=== PATIENT | female | born 1965 | race Caucasian/White ===

== ENCOUNTER 2017-05-18 20:03 | Emergency (ER) | payer OTHER ==
[2017-05-18 20:29] VITALS: BP 182/117
[2017-05-18] MEDS ORDERED: methylPREDNISolone 125 MG* 2 ML VIAL IM ONE (21:11)
[2017-05-18] MEDS ORDERED: Cyclobenzaprine TAB* 10 MG PO ONE (21:11)
--- NOTE | 2017-05-18 21:12 | UC ---
Shoulder Pain HPI - HPI Summary HPI Summary: Pt presents with progressive right shoulder pain x 5 weeks. Pt states has radiation to right arm. feels "weak" no trauma, spasm pain Pt with h/o similar neck and back pain with radiculopathy. no victor, vision change. Pt has applied heat. 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 Hx Last Menstrual Period: 05/04/17 Onset/Duration: Gradual Onset, Lasting Days Severity Initially: Moderate Severity Currently: Severe Pain Intensity: 10 Pain Scale Used: 0-10 Numeric Character: Sharp, Spasmodic - Allergies/Home Medications Allergies/Adverse Reactions: Allergies Allergy/AdvReac Type Severity Reaction Status Date / Time tetracycline Allergy Hives Verified 05/18/17 20:23 clarithromycin [From Biaxin] AdvReac See Comment Verified 05/18/17 20:23 Home Medications: Home Medications Valsartan TAB* [Diovan TAB*] 160 mg PO DAILY 05/18/17 [History Confirmed ] amLODIPine TAB* [Norvasc 5 mg TAB*] 10 mg PO DAILY 05/18/17 [History Confirmed 05/18/17] PMH/Surg Hx/FS Hx/Imm Hx Previously Healthy: Yes - Surgical History Surgical History: Yes Surgery Procedure, Year, and Place: c section 1993, left hand tendon 2005-, hernia repair 2016 - Family History Known Family History: Positive: Diabetes - Social History Lives: With Family Alcohol Use: None Substance Use Type: None Smoking Status (MU): Heavy Every Day Tobacco Smoker Type: Cigarettes Amount Used/How Often: 1/2 ppd Review of Systems Constitutional: Negative Musculoskeletal: Other: - right shoulder Neurological: Paresthesia All Other Systems Reviewed And Are Negative: Yes Physical Exam Triage Information Reviewed: Yes Appearance: Well-Nourished, Pain Distress Vital Signs: Initial Vital Signs Temp 96.9 F 05/18/17 20:22 Pulse 94 05/18/17 20:22 Resp 16 05/18/17 20:22 BP 182/117 05/18/17 20:22 Pulse Ox 100 05/18/17 20:22 Vital Signs Reviewed: Yes Eye Exam: Normal Eyes: Positive: Conjunctiva Clear ENT Exam: Normal ENT: Positive: Normal ENT inspection, Hearing grossly normal, TMs normal Dental Exam: Normal Neck exam: Normal Neck: Positive: Supple, Nontender, No Lymphadenopathy Respiratory Exam: Normal Respiratory: Positive: Chest non-tender, Lungs clear, Normal breath sounds, No respiratory distress, No accessory muscle use Cardiovascular Exam: Normal Cardiovascular: Positive: RRR, No Murmur Abdominal Exam: Normal Abdomen Description: Positive: Nontender, No Organomegaly, Soft Bowel Sounds: Positive: Present Musculoskeletal: Positive: Other: - no pain spinous process c/t/l/s + right parasponal pain along medial scapula and trapezius + flex/ext elbow + pronate/ supinate + flex/ext wrist + abduction shoulder with pain >30 + extension shoulder with pain >30 Neurological: Positive: Other: - + thumb up, a ok, finger spread, finger cross + gross sensation Skin: Positive: Other - no erythema, no shingles Re-Evaluation - Re-Evaluation First Eval Change: Improved - Pt states feels improved in sling Rx medtrol dose pack heat flexeril pcp f/u of note, istop reviewed no concerns Shoulder Course/Dx - Course Course Of Treatment: pt wtih discomfort right paraspinal, trapezzius with radiation rue. pt RHD. + discomfort with RPm. Will start pred, flexeril, heat. apap/motrin. sling for comfort - Differential Dx/Diagnosis Provider Diagnoses: shoulder pain. radiculopathy Discharge - Sign-Out/Discharge Documenting (check all that apply): Discharge - Discharge Plan Condition: Stable Disposition: HOME Prescriptions: Cyclobenzaprine TAB* [Flexeril 10 MG TAB*] 10 mg PO TID PRN #15 tab PRN Reason: Spasms methylPREDNISolone [Medrol Dosepak 4 MG*] 4 mg PO .SEE ANT INSTRUCTION #1 ant Patient Education Materials: Cervical Radiculopathy (ED), Muscle Spasm (ED) Referrals: Nina Ortiz MD [Primary Care Provider] - Additional Instructions: - Okay to alternate ibuprofen (Advil, Motrin) 600mg and Tylenol every 3hours as needed for pain. Take with food. Do NOT take for more than 4-5 days. -Take flexeril - muscle relaxer as prescribed. Do NOT drive, operate machinery or drink alcohol while taking Flexeril -Apply moist heat to your back for 20 minutes at a time, 4-5 times a day. Once your muscles are warm, slow gentle sretching exercises are important - wear sling for comfort and support - take prednisone as prescribed until gone -Contact your doctor today to arrange a follow-up appointment -If you pain is uncontrolled - go to an emergency department for further treatment - Billing Disposition and Condition Condition: STABLE Disposition: HOME
== END 2017-05-18 21:40 | disposition home or self-care (01) ==
LOC: UCCORT 20:03
DX: M25.511 Pain in right shoulder (principal); M54.10 Radiculopathy, site unspecified; F17.210 Nicotine dependence, cigarettes, uncomplicated; Z88.3 Allergy status to other anti-infective agents
CPT/HCPCS: 96372; 99203; A9270-GY; G0463; J2930

== ENCOUNTER 2020-07-15 11:15 | Observation (INO) ==
[~2020-07-15 11:15] MED LIST: Buffered Lidocaine 1% SYRIN 1 ml INTRADERM ONE; Lactated Ringers 1000 ml BAG 1,000 ML IV SCH; Midazolam 2 mg/2 ml VIAL 1 mg/ml 2 ml VIAL (2 mg) ONE; Propofol 10 MG/ML 20 ML BTL ONE; ceFAZolin 2 GM PREMIX 2 GM/50 ML BAG ONE; fentaNYL 100 mcg/2 ml 50 MCG/ML VIAL ONE
[2020-07-15] MEDS ORDERED: Dexamethasone IV 4 MG/ML VIAL 1 ml VIAL ONE ×2 (12:31→13:45)
[2020-07-15] MEDS ORDERED: Midazolam 2 mg/2 ml VIAL 1 mg/ml 2 ml VIAL (2 mg) ONE (12:31)
[2020-07-15] MEDS ORDERED: Bupivacaine 0.5% SDV PF 30ML VIAL ONE (12:32)
[2020-07-15] MEDS ORDERED: ROPIVACAINE 5 MG/ML 30 ML BTL (0.5%) ONE (12:40)
[2020-07-15] MEDS ORDERED: Propofol 10 MG/ML 20 ML BTL ONE ×2 (12:48→15:01)
[2020-07-15] MEDS ORDERED: Rocuronium 50 mg VIAL 10 mg/ml 5 ml VIAL (50 mg) ONE ×2 (12:49→14:48)
[2020-07-15] MEDS ORDERED: Lidocaine 2% PF 5 ML VIAL ONE (12:49)
[2020-07-15] MEDS ORDERED: Lidocaine 1% MPF 5 ML VIAL ONE (12:52)
[2020-07-15] MEDS ORDERED: HYDROmorphone 1 MG/1 ML SYRINGE ONE ×2 (13:27→16:12)
[2020-07-15] MEDS ORDERED: DiMENhydriNATE IV 50 mg/ml 1 ml VIAL IV PUSH PRN ×2 (13:41→15:13)
[2020-07-15] MEDS ORDERED: diPHENhydraMINE IV 50 MG/ML 1 ml VIAL (BENADRYL) IV PRN ×3 (13:41→15:13)
[2020-07-15] MEDS ORDERED: Naloxone 0.4 mg VIAL 0.4 mg/ml 1 ml VIAL IV PRN ×2 (13:41→15:13)
[2020-07-15] MEDS ORDERED: HYDROmorphone 1 MG/1 ML SYRINGE IV PRN (13:41)
[2020-07-15] MEDS ORDERED: Ondansetron 4 mg VIAL 2 MG/ML 2 ml VIAL ONE (13:45)
[2020-07-15] MEDS ORDERED: Dexmedetomidine 200 mcg/2 ml 2 ml VIAL (200 mcg) ONE (14:17)
[2020-07-15] MEDS ORDERED: Morphine 2 MG/ML SYRINGE IV PRN (14:21)
[2020-07-15] MEDS ORDERED: Ondansetron 4 mg VIAL 2 MG/ML 2 ml VIAL IV PRN (14:21)
[2020-07-15] MEDS ORDERED: Magnesium Hydroxide LIQ 30 ML UDC PO PRN (14:21)
[2020-07-15] MEDS ORDERED: Ondansetron ODT 4 mg TAB 4 MG TAB PO PRN (14:21)
[2020-07-15] MEDS ORDERED: diPHENhydraMINE 25 mg TAB PO PRN (14:21)
[2020-07-15] MEDS ORDERED: Lactulose 30 ml UDC PO PRN (14:21)
[2020-07-15] MEDS ORDERED: hydrALAZINE 20 mg/ml 1 ML Vial IV ONE (14:28)
[2020-07-15] MEDS ORDERED: Lactated Ringers 1000 ml BAG 1,000 ML IV SCH (15:00)
[2020-07-15] MEDS ORDERED: Acetaminophen IV 1 GM/100ML 100 ML ONE (15:09)
[2020-07-15] MEDS ORDERED: fentaNYL 100 mcg/2 ml 50 MCG/ML VIAL IV PRN (15:13)
[2020-07-15] MEDS ORDERED: fentaNYL 100 mcg/2 ml 50 MCG/ML VIAL ONE (16:12)
[2020-07-15] MEDS: fentaNYL 100 mcg/2 ml 50 MCG/ML VIAL IV PRN ×4 (16:14→16:44)
[2020-07-15] MEDS: HYDROmorphone 1 MG/1 ML SYRINGE IV PRN ×2 (17:11→17:57)
[2020-07-15] MEDS: ceFAZolin 1 GM ADVAN 1 GM in NS 0.9% 50 ML 50 ML IVPB SCH (21:15)
[2020-07-15] MEDS: Magnesium Hydroxide LIQ 30 ML UDC PO SCH (21:15)
[2020-07-16 04:50] LABS: Hematocrit 35 % (35-47); Hemoglobin 11.9 g/dL (12.0-16.0); Mean Platelet Volume 7.6 fL (7.4-10.4); Platelet Count 221 10^3/uL (150-450)
[2020-07-16 05:09] LABS: Calcium 8.8 mg/dL (8.6-10.3); EGFR African American 100.9 (>60); EGFR Non-African American 83.4 (>60); Potassium 3.7 mmol/L (3.5-5.0)
[2020-07-16] MEDS: ceFAZolin 1 GM ADVAN 1 GM in NS 0.9% 50 ML 50 ML IVPB SCH ×2 (05:17→13:11)
[2020-07-16] MEDS ORDERED: Vitamin THERAPEUTIC TAB PO SCH (09:00)
[2020-07-16] MEDS: Magnesium Hydroxide LIQ 30 ML UDC PO SCH (09:06)
[2020-07-16 11:36] VITALS: BP 127/86
== END 2020-07-16 14:55 | disposition home or self-care (01) ==
LOC: OR 11:15 → SSU 11:15
PROVIDERS: ADMIT Orthopaedic Surgery Adult Reconstructive Orthopaedic Surgery; ATTEND Orthopaedic Surgery Adult Reconstructive Orthopaedic Surgery

== ENCOUNTER 2021-03-13 07:33 | Inpatient (IN) ==
[~2021-03-13 07:33] MED LIST changes: +Acetaminophen IV 1 GM/100ML 0 ML IV ONE; +Bupivacaine 0.5% SDV PF 30ML VIAL ONE; +Dexamethasone IV 4 MG/ML VIAL 1 ml VIAL ONE; +DiMENhydriNATE IV 50 mg/ml 1 ml VIAL IV PUSH ONE; +HYDROcodone/ACETAMIN 5/325 mg TAB PO PRN; +Lidocaine 2% PF 5 ML VIAL ONE; +Metoclopramide 5 MG/ML VIAL (10 mg) IV PRN; +Naloxone 0.4 mg VIAL 0.4 mg/ml 1 ml VIAL IV PRN; +Ondansetron 4 mg VIAL 2 MG/ML 2 ml VIAL IV PRN; +Ondansetron 4 mg VIAL 2 MG/ML 2 ml VIAL ONE; +Ropivacaine 5 MG/ML 20 ML VIAL 0.5% (100 MG) ONE; -ceFAZolin 2 GM PREMIX 2 GM/50 ML BAG ONE
[2021-03-13] MEDS ORDERED: Ropivacaine 5 MG/ML 20 ML VIAL 0.5% (100 MG) ONE (08:00)
[2021-03-13] MEDS ORDERED: ceFAZolin 2 GM in NS PREMIX 2 GM/100 ML BAG IVPB ONE (08:02)
[2021-03-13] MEDS ORDERED: Rocuronium 50 mg VIAL 10 mg/ml 5 ml VIAL (50 mg) ONE (08:12)
[2021-03-13] MEDS ORDERED: fentaNYL 250 mcg/5 ml 50 MCG/ML 5 ml VIAL (250 MCG) ONE ×2 (08:17→09:07)
[2021-03-13] MEDS ORDERED: DiMENhydriNATE IV 50 mg/ml 1 ml VIAL ONE (08:18)
[2021-03-13] MEDS ORDERED: Phenylephrine IV 10 MG/ML 1 ml VIAL ONE ×2 (09:09→13:16)
[2021-03-13] MEDS ORDERED: Levalbuterol HFA INHALER MDI ONE (09:15)
[2021-03-13] MEDS ORDERED: Magnesium Hydroxide LIQ 30 ML UDC PO PRN (11:13)
[2021-03-13] MEDS ORDERED: Morphine 2 MG/ML SYRINGE IV PRN (11:13)
[2021-03-13] MEDS ORDERED: Lactulose 30 ml UDC PO PRN (11:13)
[2021-03-13] MEDS ORDERED: diPHENhydraMINE 25 mg TAB PO PRN (11:13)
[2021-03-13] MEDS ORDERED: diPHENhydraMINE IV 50 MG/ML 1 ml VIAL (BENADRYL) IV PRN (11:13)
[2021-03-13] MEDS ORDERED: Ondansetron ODT 4 mg TAB 4 MG TAB PO PRN (11:13)
[2021-03-13] MEDS: fentaNYL 100 mcg/2 ml 50 MCG/ML VIAL IV PRN ×4 (11:19→11:37)
[2021-03-13] MEDS ORDERED: fentaNYL 100 mcg/2 ml 50 MCG/ML VIAL ONE (11:26)
[2021-03-13] MEDS ORDERED: HYDROcodone/ACETAMIN 5/325 mg TAB ONE (11:47)
[2021-03-13] MEDS ORDERED: Lactated Ringers 1000 ml BAG 1,000 ML IV SCH (12:00)
[2021-03-13] MEDS ORDERED: diPHENhydraMINE IV 50 MG/ML 1 ml VIAL (BENADRYL) ONE (12:10)
[2021-03-13] MEDS ORDERED: hydrALAZINE 20 mg/ml 1 ML Vial IV IV SLOW PU PRN (12:34)
[2021-03-13] MEDS ORDERED: HYDROmorphone 1 MG/1 ML SYRINGE ONE (12:35)
[2021-03-13] MEDS: HYDROmorphone 1 MG/1 ML SYRINGE IV SLOW PU PRN ×2 (12:39→12:51)
[2021-03-13] MEDS: Nicotine PATCH 14 MG/24 HR PATCH TRANSDERM SCH (16:08)
[2021-03-13] MEDS: ceFAZolin 1 GM ADVAN 1 GM in NS 0.9% 50 ML 50 ML IVPB SCH (17:43)
[2021-03-13] MEDS: Ondansetron 4 mg VIAL 2 MG/ML 2 ml VIAL IV PRN (19:30)
[2021-03-13] MEDS: Magnesium Hydroxide LIQ 30 ML UDC PO SCH (19:30)
[2021-03-13] MEDS: Calcium Carb (TUMS) 500 mg CHEW TAB PO PRN (19:30)
[2021-03-14] MEDS: ceFAZolin 1 GM ADVAN 1 GM in NS 0.9% 50 ML 50 ML IVPB SCH ×2 (01:05→08:11)
[2021-03-14] MEDS: Calcium Carb (TUMS) 500 mg CHEW TAB PO PRN (08:10)
[2021-03-14] MEDS: Magnesium Hydroxide LIQ 30 ML UDC PO SCH (08:11)
[2021-03-14] MEDS: Nicotine PATCH 14 MG/24 HR PATCH TRANSDERM SCH (08:11)
[2021-03-14] MEDS ORDERED: Vitamin THERAPEUTIC TAB PO SCH (09:00)
[2021-03-14] MEDS: Ondansetron 4 mg VIAL 2 MG/ML 2 ml VIAL IV PRN (09:17)
[2021-03-14 10:02] LABS: Hematocrit 31 % (35-47); Hemoglobin 10.4 g/dL (12.0-16.0); Mean Platelet Volume 7.6 fL (7.4-10.4); Platelet Count 210 10^3/uL (150-450)
[2021-03-14 10:23] LABS: Calcium 8.3 mg/dL (8.6-10.3); Potassium 3.4 mmol/L (3.5-5.0); eGFR CKD-EPI 105.8 (>60)
[2021-03-14] MEDS ORDERED: Morphine ER 15 mg TAB ** extended release PO SCH (11:00)
[2021-03-14 11:27] VITALS: BP 150/93
== END 2021-03-14 15:00 | disposition home or self-care (01) | DRG 302 ==
LOC: AA 07:33
PROVIDERS: ADMIT Orthopaedic Surgery Adult Reconstructive Orthopaedic Surgery; ATTEND Orthopaedic Surgery Adult Reconstructive Orthopaedic Surgery